=== PATIENT | female | born 1965 | race Caucasian/White ===

== ENCOUNTER 2020-10-03 00:29 | Emergency (ER) | payer OTHER ==
[~2020-10-03] VITALS: Ht 167.6 cm; Wt 104.5 kg
--- NOTE | 2020-10-03 01:24 | PHYS DOC ---
General Adult EDM: Chief Complaint: FLU SYMPTOM HPI: HPI: 55-year-old female presents with a chief complaint of dizziness. Patient states around 2200 hrs. she had sudden onset of dizziness which she describes as the room spinning. Patient states dizziness is worse with head movement but also present while at rest. She states she has associated nausea vomiting and diaphoresis. She denies any headache, fever or blurry vision. Patient reports that she has had a cold x1 week. She states her symptoms include running stuffy nose cough without sputum production. Patient states she received her Covid vaccine this past June. Review of Systems: Review of Systems: Review of systems: Constitutional symptoms- No fever, Positive chills. Eyes- No Discharge, No Visual Loss Respiratory symptoms- No shortness of breath, No wheezing, No Dyspnea on Exertion Cardiovascular Systems; No chest pain, No Palpitations, No syncope Gastrointestinal symptoms: NO abdominal pain, Positive nausea, Positive vomiting no diarrhea. Genitourinary symptoms: No dysuria. Musculoskeletal symptoms: No back pain No extremity pain. NEUROLOGICAL Symptoms: No headache, no generalized weakness; No focal Weakness Positive dizziness Skin: No rash. Heart Score: C/O Chest Pain: N/A Risk Factors: Risk Factors: DM, Current or recent (<one month) smoker, HTN, HLP, family history of CAD, obesity. Risk Scores: Score 0 - 3: 2.5% MACE over next 6 weeks - Discharge Home Score 4 - 6: 20.3% MACE over next 6 weeks - Admit for Clinical Observation Score 7 - 10: 72.7% MACE over next 6 weeks - Early Invasive Strategies Allergies: Allergies: Allergies Coded Allergies Type Severity Reaction Last Updated Verified No Known Drug Allergies 10/03/20 No Physical Exam: PE: General: alert, no acute distress. Skin: warm, dry and intact. HENT: bilateral external ears normal, oropharynx moist, nose normal. Head:: Normocephalic, atraumatic. Neck: Trachea midline. Eyes: EOMI, Normal conjunctiva, No drainage CARDIOVASCULAR: Regular rate and rhythm RESPIRATORY: No respiratory distress Back: Full range of motion. Skin: Warm, dry, no erythema, no rash. MUSCULOSKELETAL: Full range of motion of bilateral upper and lower extremities. GASTROINTESTINAL: Abdomen soft without rebound or guarding. NEUROLOGICAL: Alert and noted to person, place and time. No neurological deficits observed Psychiatric: Cooperative. Normal judgment EKG: EKG: [] Performed at 0200 Rate [address] elevation No ST depression No acute OR Radiology/Procedures: Radiology/Procedures: [] Impression: FINDINGS: No intracranial hemorrhage. No significant midline shift. Ventricles and sulci are unremarkable. No acute osseous abnormality. Scalp calcifications IMPRESSION: * No acute intracranial hemorrhage. Course & Med Decision Making: Course & Med Decision Making Pertinent Labs and Imaging studies reviewed. (See chart for details) [] Was evaluated for chief complaint. Work-up consisted of laboratory analysis radiologic imaging and EKG. Results reviewed and discussed with patient. CT imaging of head no acute abnormalities. Patient's blood work within normal limits. EKG without acute ischemic changes. Treatment included IV fluids and Ativan. Patient states post treatment her dizziness greatly improved. Patient ambulated with a steady gait. [facility] hospital admission versus discharge home. Patient states she feels comfortable with being discharged home. Will prescribe patient Valium. Patient advised to return to the ER if symptoms persist get worse or any new concerning symptoms arise. Luke Disclaimer: Luke Disclaimer: This electronic medical record was generated, in whole or in part, using a voice recognition dictation system. Departure Departure Impression: Primary Impression: Dizziness Additional Impression: Viral syndrome Disposition: HOME / SELF CARE / HOMELESS Condition: STABLE Referrals: ROMARIO HODGSON (PCP) Patient Instructions: Dizziness, Viral Syndrome Scripts Diazepam (VALIUM) 5 Mg Tablet 5 MG PO PRN PRN for DIZZINESS, #20 TAB Prov: TRUNG VASQUES I DO 10/03/20 Diazepam (VALIUM) 5 Mg Tablet 5 MG PO TID PRN for DIZZINESS, #20 TAB Prov: TRUNG VASQUES I DO 10/03/20 TRUNG VASQUES I DO Oct 03, 2020 01:24
--- NOTE | 2020-10-03 01:43 | RAD ---
INDICATION: Reason: dizziness / Spl. Instructions: / History: COMPARISON: None. TECHNIQUE: Axial CT images obtained through the head without intravenous contrast. One or more of the following individualized dose reduction techniques were utilized for this examinat ion: 1. Automated exposure control; 2. Adjustment of the mA and/or kV according to patient size; 3 . Use of iterative reconstruction technique. FINDINGS: No intracranial hemorrhage. No significant midline shift. Ventricles and sulci are unremarkable. No acute osseous abnormality. Scalp calcifications IMPRESSION: * No acute intracranial hemorrhage. Electronically signed by: Lex Hough MD (10/03/2020 1:41 AM) [id number]
[2020-10-03 02:50] LABS: BASO % 0 % (0-3); EOS % 0 % (0-3); HEMATOCRIT 40.4 % (36.0-47.0); HEMOGLOBIN 13.9 g/dL (12.0-15.5); LYMPH # 1.2 x10^3/uL (1.0-4.8); LYMPH % 13 % (24-48); MEAN CORPUSCULAR HEMOGLOBIN 31 pg (25-35); MEAN CORPUSCULAR HGB CONC 34 g/dL (31-37); MEAN CORPUSCULAR VOLUME 90 fL (79-100); MONO # 0.4 x10^3/uL (0.0-1.1); MONO % 5 % (0-9); NEUT # 7.5 x10^3/uL (1.8-7.7); NEUT % 82 % (31-73); PLATELET COUNT 220 x10^3/uL (140-400); RED BLOOD COUNT 4.49 x10^6/uL (3.50-5.40); RED CELL DISTRIBUTION WIDTH 12.6 % (11.5-14.5); WHITE BLOOD COUNT 9.2 x10^3/uL (4.0-11.0)
[2020-10-03 03:03] LABS: CALCIUM 9.1 mg/dL (8.5-10.1); CREATININE 0.8 mg/dL (0.6-1.0); GFR 74.5; POTASSIUM 4.5 mmol/L (3.5-5.1)
[2020-10-03 03:08] LABS: ALBUMIN 4.1 g/dL (3.4-5.0); ALBUMIN/GLOBULIN RATIO 1.2 (1.0-1.7); TOTAL BILIRUBIN 0.4 mg/dL (0.2-1.0); TOTAL PROTEIN 7.5 g/dL (6.4-8.2)
[2020-10-03] MEDS ORDERED: DIAZ5TAB PO ×2 (04:10→05:16)
[2020-10-03 05:05] VITALS: BP 168/87
--- NOTE | 2020-10-03 05:56 | EKG ---
[facility] [address] [place] [address] Test Date: 2020-10-03 Test Time: 02:00:13 Pat Name: THELMA MENDOZA Department: Room: Gender: F [employer] Stock [employer]: : 1965 Requested By: TRUNG VASQUES Order Number: [id number] Reading MD: Measurements Intervals [place] Rate: 70 P: 57 IA: 152 QRS: 49 QRSD: 90 T: 43 QT: 420 QTc: 457 Interpretive Statements SINUS RHYTHM QRS(T) CONTOUR ABNORMALITY CONSIDER ANTEROSEPTAL MYOCARDIAL DAMAGE POSSIBLY ABNORMAL ECG RI6.01 No previous ECG available for comparison
== END 2020-10-03 05:25 | disposition home or self-care (01) ==
LOC: ER 00:29
DX: B34.9 Viral infection, unspecified (principal); R42 Dizziness and giddiness; R11.2 Nausea with vomiting, unspecified
CPT/HCPCS: 36415; 70450; 80053; 84484; 85025; 93005; 96374; 99285; J2060